=== PATIENT | male | born 1955 | race African-American/Black ===

== ENCOUNTER 2017-10-08 05:16 | Day surgery (SDC) | payer BC ==
[~2017-10-08] VITALS: Ht 160 cm; Wt 69.9 kg
--- NOTE | ~2017-10-08 | O ---
[facility] [place] [address] OPERATIVE REPORT Name: ELIZABETH PRASAD Room #: DEP [facility] M.R.#: [id number] Admission: 10/08/17 Attend Phys: Konrad Canales MD Discharge: 10/08/17 Date of : 53 Report #: [id number] THIS REPORT FOR: //name// CC: Arias Canales PREOPERATIVE DIAGNOSIS: Blind painful left eye. 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 PROCEDURE: Enucleation of left eye with implantation of 18 mm Medpor sphere with muscles attached to implant, conjunctivoplasty, and temporary tarsorrhaphy. SURGEON: Konrad Canales M.D. LIFE MANAGEMENT TEACHER: None. ANESTHESIA: General. COMPLICATIONS: None. INDICATIONS FOR SURGERY: This pleasant 62-year-old gentleman has a blind painful left eye. He presents today for enucleation of the eye with reconstruction of the socket. Informed consent was obtained to include but not limited to potential risk for bleeding, infection, and the need for further surgery or treatment. DESCRIPTION OF PROCEDURE: The patient was taken to the operating room where general anesthesia was administered. The left socket was then anesthetized with Xylocaine with epinephrine mixed with Marcaine and Wydase. An additional aliquot of the anesthetic was then administered to the eyelid margin for tarsorrhaphy anticipated to be placed at the end of the case. An anterior transconjunctival injection was also administered, which immediately displayed significant conjunctival scarring that was not necessarily readily apparent preoperatively. The patient was subsequently prepped and draped in the usual sterile fashion. The right eye was protected with a moistened sponge while a lid speculum was placed on the left eye. At 360 degree conjunctival peritomy was placed as best possible preserving as much conjunctiva as could be accomplished. The oblique quadrants were then bluntly dissected. The lateral rectus muscle was then grasped on a muscle hook and cleaned of its surrounding connective tissue. A double-armed 5-0 Vicryl suture was then passed through its insertion with locking bites at each margin. It was then transected from the globe. [facility] [address] [place] [address] OPERATIVE REPORT Name: ELIZABETH PRASAD Room #: DEP [facility] M.R.#: [id number] Admission: 10/08/17 Attend Phys: Konrad Canales MD Discharge: 10/08/17 Date of : 53 Report #: [id number] The inferior medial and superior rectus muscles were similarly isolated on a 5-0 double arm Vicryl suture. The superior and inferior oblique muscles were isolated and transected from their attachment to the globe and allowed to retract back into the orbit. A silk traction suture was then placed through the insertion site of the lateral rectus muscle with a locking bite. The globe was then distracted medially as best possible as the optic nerve was then clamped with a hemostat. The hemostat was left on for 3 minutes. It was then released. The hemostat was then reclamped for 3 more minutes. The hemostat was then released and reclamped one more time for final a 3-minute clamp. The optic nerve was then cut with an enucleation scissor following which very little bleeding ensued. A 20 mm Medpor sphere could be placed in the socket, but appeared relatively tight, so an 18 mm Medpor sphere was soaked in antibiotic irrigation solution and vacuum aspirated. It was then reposited behind posterior tenons with the aid of an easy glide introducer. Tenons were then closed over the implant with interrupted 5-0 Vicryl sutures. The medial and lateral rectus muscles were drawn to each other and closed with interrupted 5-0 Vicryl sutures. The superior and inferior rectus muscles were attached to the medial and lateral rectus muscles with 5-0 Vicryl sutures. Anterior tenons were then closed with interrupted 5-0 Vicryl sutures that were buried. The conjunctiva was then undermined sufficiently to allow a conjunctivoplasty repair to be accomplished. After relaxing incisions were then made and hemostasis re-achieved, the flap was advanced and closed with 6-0 Vicryl sutures. The wound was then dressed with erythromycin ointment followed by a medium size conformer. A temporary tarsorrhaphy was then fashioned from a short section of IV tubing and a pass from a double arm 5-0 nylon suture. A Telfa pad was then placed on the eye followed by 2 eye pads. These were held in place then with silk tape and Mastisol. The patient was subsequently transported to the recovery area having tolerated the procedures well with no anesthetic or operative complications being noted. <ELECTRONICALLY SIGNED> By: Konrad Canales MD 10/12/17 0614 [id number] Konrad Canales MD /nt
--- NOTE | ~2017-10-08 | S ---
[facility] [place] [address] SURGICAL PATH RPT PROCEDURE Name: LORENZO PRASAD Room #: DEP [facility] M.R.#: [id number] Admission: 10/08/17 Date of : 53 Discharge: 10/08/17 Report #: [id number] Path Case #: [id number] PATHOLOGY REPORT COLLECTION DATE: 10/08/2017 RECEIVED DATE: 10/08/2017 SUBMITTING PHYS: Dr. Konrad Canales OTHER PHYS: SPECIMEN(S) RECEIVED: A.Blind painful left eye suture at lateral rectus * * * * * * * * * * * * FINAL DIAGNOSIS: "Blind painful left eye suture at lateral rectus," enucleation: - Cornea, sclera, retina, iris, lens, optic nerve, and attached skeletal muscle with patchy fibrosis, chronic inflammation, and metaplastic bone formation consistent with blind painful eye. (CLW:; 10/12/2017) PATHOLOGIST: Dorcas Hawthorne M.D. REPORT ELECTRONICALLY SIGNED BY: Drocas Hawthorne M.D. DATE/TIME: 10/12/2017 15:05 * * * * * * * * * * * * GROSS PATHOLOGY: Received in formalin labeled "Lorenzo Prasad, blind painful left eye, suture at neural rectus" and consists of a roughly globoid eye oriented with a suture laterally measuring 2.5 x 2.3 x 2.2 cm. There is a stump of optic nerve present measuring 0.5 cm in length by 0.3 cm in diameter. The sclera is worrell to oglesby, and slightly white. The cornea measures 0.9 cm in diameter and is slightly concave with a dark brown to opaque appearance. The optic nerve is inked and the eye is sagittally sectioned to reveal a firm oglesby, and milky white lens that measures 0.9 x 0.3 cm. There is scant vitreous humor. The vitreous chamber is lined by ragged membranous, oglesby, worrell tissue with marked areas of calcific changes. No additional lesions or masses are identified. Pt Skilled sections are submitted A1-A3. A1 full-thickness, sagittal section, decal A2 pharmaceutical service representative lateral half, decal A3 pharmaceutical service representative medial half, decal (YOBANY; 10/08/2017) CLINICAL HISTORY: Blind painful left eye [address] [place] [address] SURGICAL PATH RPT PROCEDURE Name: LORENZO PRASAD Room #: DEP [facility] M.R.#: [id number] Admission: 10/08/17 Date of : 53 Discharge: 10/08/17 Report #: [id number] Path Case #: [id number] INITIAL CPT CODE(S): A; 09507, 81768 Professional services performed by [facility] at [address] , [place] [address] Technical services performed by [facility] at [address] [place] [address], [address] [address]. [facility] [address] [address] PHONE: [phone] DIRECTOR: Steven W. Erum, M.D. * * * END OF REPORT * * *
[~2017-10-08 05:16] MED LIST: COZAAR 50 MG TA50 M2 PO; LIPITOR 20 MG T20 M1 PO; NORVASC5 MG PO; PROTONIX40 M1 PO
[2017-10-08 07:20] VITALS: BP 149/80
== END 2017-10-08 16:00 | disposition home or self-care (01) ==
LOC: TBA 05:16 → OR 05:16 → TBA 05:17 → OR 08:19
DX: H11.242 Scarring of conjunctiva, left eye (principal); H54.62 Unqualified visual loss, left eye, normal vision right eye; H57.12 Ocular pain, left eye; I10 Essential (primary) hypertension; E78.00 Pure hypercholesterolemia, unspecified; K21.9 Gastro-esophageal reflux disease without esophagitis; Z79.899 Other long term (current) drug therapy
CPT/HCPCS: 50010; 50101; 50386; 50398; 51636; 51854; 53500; 56527; 56528; 56531; 62110; 62900; 64037; 70005